=== PATIENT | female | born 1990 | race Caucasian/White ===

== ENCOUNTER 2021-04-18 17:47 | Inpatient (IN) | payer BC ==
[~2021-04-18 17:47] MED LIST: COLACE 100MG C100 MG PO; IBUPROFEN600 MG PO; LORTAB 5-325 M1 EACH PO; OMNICEF 300 MG300 MG PO; PROVENTIL HFA6.7 GM INH; ZITHROMAX250 MG PO
[2021-04-18 21:39] LABS: HEMOGLOBIN 12.6 gm/dl (12.3-15.3); RED BLOOD COUNT 4.41 M/UL (4.00-5.10); WHITE BLOOD COUNT 11.7 K/UL (4.5-11.0)
[2021-04-18] MEDS ORDERED: DOCUSATE SODIU100 MG PO (22:50)
[2021-04-18] MEDS ORDERED: IBUPROFEN600 MG PO (22:50)
[2021-04-19] MEDS ORDERED: MINI PRENATAL1 EACH PO (02:26)
[2021-04-19 05:28] LABS: HEMOGLOBIN 11.5 gm/dl (12.3-15.3)
== END 2021-04-20 12:45 | disposition home or self-care (01) | DRG 807 ==
LOC: GENOP 17:47 → OB 20:43
PROVIDERS: Obstetrics & Gynecology; ADMIT Obstetrics & Gynecology
PROC: 10E0XZZ Delivery of Products of Conception, External Approach (ICD-10-PCS; principal; 2021-04-18)
PROC: 10907ZC Drainage of Amniotic Fluid, Therapeutic from Products of Conception, Via Natural or Artificial Opening (ICD-10-PCS; 2021-04-18)
PROC: 4A1HXCZ Monitoring of Products of Conception, Cardiac Rate, External Approach (ICD-10-PCS; 2021-04-18)
DX: O24.420 Gestational diabetes mellitus in childbirth, diet controlled (principal); Z37.0 Single live birth; Z20.822 Contact with and (suspected) exposure to COVID-19; O99.824 Streptococcus B carrier state complicating childbirth; Z3A.38 38 weeks gestation of pregnancy; Z82.49 Family history of ischemic heart disease and other diseases of the circulatory system; Z80.49 Family history of malignant neoplasm of other genital organs; Z80.3 Family history of malignant neoplasm of breast; Z87.440 Personal history of urinary (tract) infections
CPT/HCPCS: 36415; 81001; 82800; 82962; 83518; 85014; 85018; 85025; 85461; 86850; 86900; 86901; C9113; J2405; J2590; J2790